=== PATIENT | female | born 1960 | race Caucasian/White ===

== ENCOUNTER → 2018-08-26 | Outpatient (CLI) | payer OTHER ==
--- NOTE | 2018-08-26 16:55 | KCIC ---
MRI Lumbar Spine without contrast History: Low back pain, left weakness and pain Technique: Multiplanar, multi sequential noncontrast MR imaging was performed of the lumbar spine. Comparison: None Findings: There is some motion degradation. Lumbar vertebral body stature is maintained. There is negligible posterior subluxation L2 relative to L3, negligible anterior spondylolisthesis L4-5 and L5-S1. There is mild degenerative disc disease L4-5 and L5-S1, mild disc desiccation L3-4 and L2-3. Conus terminates at T12-L1. There is no significant marrow edema. L1-L2: This level was not fully included on the axial images. Neural foramina and spinal canal are adequate. There is negligible posterior bulge. L2-L3: There is negligible bulge. There is mild buckling of the ligamentum flavum and facet degenerative change, minimal fluid in the facet articulations. Neural foramina and spinal canal are adequate. L3-L4: There is minimal bulge. There is moderate facet degenerative change and buckling of the ligamentum flavum. There is mild prominence of posterior epidural fat. There is mild narrowing of the far lateral recesses bilaterally. Neural foramina are overall adequate. L4-L5: There is mild to moderate buckling of the ligamentum flavum and mild facet hypertrophic change. There is very shallow protrusion more eccentric to left lateral recess. There is mild narrowing of the far lateral recesses greater on the left. Neural foramina are overall adequate. L5-S1: There is negligible posterior bulge without significant impingement of the descending S1 nerve roots, very mild narrowing of the far left lateral recess. There is mild narrowing of the left neural foramen, right neural foramen adequate. Impression: 1. There is mild narrowing of the far lateral recesses greater on the left at L4-5, also mild narrowing of the far lateral recesses bilaterally at L3-4. There is multilevel mild abnormal alignment, multilevel facet degenerative change. There is mild degenerative disc disease L4-5 and L5-S1. There is mild narrowing of the left L5-S1 neural foramen. Electronically signed by: Paul Gavin MD (08/26/2018 4:51 PM) [id number]
== END | disposition home or self-care (01) ==
LOC: KCIC MRI 15:58
PROVIDERS: ATTEND Anesthesiology Pain Medicine
DX: M47.26 Other spondylosis with radiculopathy, lumbar region (principal); M51.16 Intervertebral disc disorders with radiculopathy, lumbar region; M48.07 Spinal stenosis, lumbosacral region; Z90.710 Acquired absence of both cervix and uterus
CPT/HCPCS: 72148